=== PATIENT | female | born 1940 | race Caucasian/White ===

== ENCOUNTER 2017-01-13 01:15 | Inpatient (IN) | payer OTHER, MEDICARE ==
[~2017-01-13] VITALS: Ht 167.6 cm; Wt 70.3 kg
[~2017-01-13 01:15] MED LIST: LOPRESSOR50 M1 PO; LOSARTAN POTASS50 M1 PO; MELATONIN PO; WARFARIN; ZANTAC150 M1 PO
--- NOTE | 2017-01-13 10:40 | Admission Core Measures ---
Admission Meds I reviewed the following Meds: Current Medications Sig/Christin Start time Last Medication Dose Stop Time Status Admin Cefazolin Sodium 2,000 MG ONCE 01/13 0000 NR (Kefzol-Ancef Inj) 01/13 0469 Acute Coronary Syndrome Inclusion Criteria ACS Diagnosis No Inpatient Core Measures LDL Reminder: If No, please order W/I first 24hr of stay Congestive Heart Failure Inclusion Criteria CHF Diagnosis No Cerebrovascular accident Inclusion Criteria CVA/TIA Diagnosis No Inpatient Core Measures Bedside Swallow Eval Reminder: If BSE failed, place ST order Antithrombotic Reminder: Order Antithrombotic Medication by end of day 2 Antithrombotic Reminder: Document Reason Antithrombotic Not ordered by end of day 2 AFIB/Flutter Reminder: If Present, add to problem list AFIB/Flutter Reminder: Order Anticoag Medication for pts with AFIB/Flutter Atherosclerosis Reminder: If Present, add to problem list LDL Reminder: If No, please order W/I first 24hr of stay PT Order Reminder: If No, please order Venous thromboembolism Inpatient Core Measures VTE Risk Factors: [facility] prophylaxis d/t No contraindications No VTE Pharm Prophylaxis d/t No contraindications Inclusion Criteria - Per Current guidelines, there needs to be overlap - treatment for the first 5 days of Warfarin therapy. - Parenteral Anticoagulation (IV or SC) needs to be - given along with Warfarin therapy. VTE Diagnosis No (HX dvt) VTE Type NONE VTE Confirmed by (Test) NONE Problem List As ranked by this Provider includes Assessment & Plan 1. Primary osteoarthritis of left hip HOME MEDS Home Med List Losartan Potassium 50 MG TABLET 1 TAB PO DAILY HTN (Reported) [MELATONIN] 1 MG PO QHS SLEEP (Reported) Metoprolol Tartrate (Lopressor) 50 MG TABLET 1 TAB PO BID HTN (Reported) Ranitidine HCl (Zantac) 150 MG TABLET 1 TAB PO DAILY GERD (Reported)
[2017-01-13 13:04] LABS: PT 12.1 SEC (9.4-12.5)
--- NOTE | 2017-01-13 14:52 | Surg Short-stay <48hrs Dis Sum ---
Visit Information Visit Dates Admission Date: 01/13/17 Discharge Date: 01/14/17 Surgical Short Stay DC Summary Admission Diagnosis: Left hip primary osteoarthritis Final Diagnosis: Same Status post left total hip arthroplasty Procedure(s): Left total hip arthroplasty Summary/Significant Findings: Patient was admitted to the hospital for an elective total joint replacement. The procedure was tolerated well and patient was transferred to a general surgical floor. Diet was advanced and tolerated, and the patient voided spontaneously. The patient was evaluated and treated by physical therapy. At the time of hospital discharge, the vital signs were stable, neurovascular status was intact, and pain was controlled with the use of oral pain medications. While inpatient, anticoagulated with Coumadin per INR and Lovenox. Will continue on Coumadin per INR after discharge Condition at Discharge: Stable Discharge Disposition: home health services Discharge instructions provided to patient/family: Yes Post discharge follow-up plan: Follow up with Dr. Bazan in 6 weeks from date of surgery. Please call his office to arrange and/or confirm this appointment.
--- NOTE | 2017-01-13 15:00 | Patient Discharge Instructions ---
Discharge Instructions General Discharge Information You were seen/treated for: Left hip primary osteoarthritis You had these procedures: Left total hip arthroplasty Watch for these problems: Increasing pain despite the use of pain medication Increasing redness, warmth or swelling Drainage of any type from incision Inability to bear weight on operative leg Persistent nausea and vomiting Fever greater than 101.5 degrees Other wound care: Please keep wound clean and dry. No ointments or lotions of any type on or near incision at any time. No exceptions. Your dressing will be changed by your nurse on the second day after your surgery. Daily dry dressing changes are recommended each day thereafter. Do not soak your wound in a bath at any time until otherwise indicated by your surgeon. You may shower, please dry wound immediately after shower with a clean towel. Special Instructions: Coumadin: Continue to take based on INR. INR goal 2-3. Constipation: Pain medication can cause constipation. It is recommended that you take Colace and miralax daily. You may discontinue this medication if you develop loose stool or diarrhea. If you wish to continue this medication, it is available over the counter. If you are unable to move your bowels or pass gas after several days, please contact your doctor. Diet Continue normal diet: Yes Activity Activity Limited to: Weight bear as tolerated Additional ACTIVITY Info: Use assistive devices as needed Acute Coronary Syndrome Inclusion Criteria At DC or during hospital stay patient has or had the following: ACS DIAGNOSIS No Discharge Core Measures Meds if any: Prescribed or Continued at Discharge Meds if any: NOT Prescribed or Continued at Discharge Congestive Heart Failure Inclusion Criteria At DC or during hospital stay patient has or had the following: CHF DIAGNOSIS No Discharge Core Measures Meds if any: Prescribed or Continued at Discharge Meds if any: NOT Prescribed or Continued at Discharge Cerebrovascular accident Inclusion Criteria At DC or during hospital stay patient has or had the following: CVA/TIA Diagnosis No Discharge Core Measures Meds if any: Prescribed or Continued at Discharge Meds if any: NOT Prescribed or Continued at Discharge Venous thromboembolism Inclusion Criteria VTE Diagnosis No VTE Type NONE VTE Confirmed by (Test) NONE Discharge Core Measures - Per Current guidelines, there needs to be overlap - treatment for the first 5 days of Warfarin therapy. - If discharged on Warfarin prior to 5 days of - overlap therapy, the patient will need to be - assessed for post discharge needs including - *Post discharge parental anticoagulation - *Warfarin and/or parental anticoagulation education - *Follow up date to check INR post discharge At least 5 days overlap therapy as Inpatient No Meds if any: Prescribed or Continued at Discharge Note: Overlap Therapy is Warfarin and Anticoagulant Meds if any: NOT Prescribed or Continued at Discharge
[2017-01-13] MEDS ORDERED: COLACE100 M1 PO (15:03)
[2017-01-13] MEDS ORDERED: MIRALAX17 G1 PO (15:03)
[2017-01-13] MEDS ORDERED: MS CONTIN15 M2 PO (15:03)
[2017-01-13] MEDS ORDERED: COUMADIN5 M2 PO (15:03)
[2017-01-13] MEDS ORDERED: DILAUDID2 M1 PO (15:03)
--- NOTE | 2017-01-13 17:59 | Operative Report ---
Operative/Inv Procedure Report Surgery Date: 01/13/17 Name of Procedure: Left total hip replacement Pre-Operative Diagnosis: Primary left hip DJD Post-Operative Diagnosis: Same Estimated Blood Loss: 250 Surgeon/Heavy Equipment Supervisor: ISIDORO FERRARI,FRAN Huber Anesthesia: block Operative/Procedure Note Note: Description of Procedure: The patient was taken to the operating room and positively identified. After induction of spinal anesthesia and administration of appropriate pre-operative antibiotics, the patient was positioned supine on the operating room table and all bony prominences were well padded. After performing a surgical timeout, the left lower extremity was prepped and draped in the usual sterile fashion. A direct anterior approach was made to the left hip. The incision was carried sharply through superficial soft tissues to the level of the fascia. Meticulous hemostasis was maintained with Bovie electocautery. The fascia over the tensor fascia dwayne muscle was opened sharply and the interval between the TFL and the sartorius was entered bluntly taking care to stay lateral to the lateral femoral cutaneous nerve. Retractors were placed around the femoral neck and the pericapsular fat was identified. The ascending branches of the lateral femoral circumflex vessels were identified and carefully coagulated. The pericapsular fat and anterior capsule were then resected. A napkin ring osteotomy was performed and the femoral head was removed without difficulty. Attention was then turned to the acetabulum. After appropriate placement of retractors, the acetabulum was exposed. Soft tissue was cleaned from the acetabular margin and notch. Overhanging osteophytes were removed and the teardrop was exposed. The acetabulum was then sequentially reamed to accept a 56 mm [place] Trident Tritanium Hemispherical shell. This was impacted into place in the appropriate position and fitted with a 36 mm Trident X3 zero degree polyethylene insert. A single acetabular screw was used for supplemental fixation. Attention was then turned to the femur. After performing the appropriate ligament releases, the proximal femur was exposed. It was then sequentially broached to accept a size 6 Jackie Accolade 2 stem. This was trialed for leg length and stability. The trial component was removed and the final component was impacted into place. The trunnion was carefully cleaned and fit with a 36 mm, +2.5 Biolox delta ceramic femoral head. The hip was reduced and put through a full range of motion and found to be stable. The articular space was then irrigated with sterile saline. The periarticular soft tissues were infilitrated with Marcaine. The fascial layer was closed with interrupted #1 vicryl suture and the skin was re-approximated with interrupted 2 -0 vicryl. The skin was closed with a running 3-0 V-Lock suture. Steri-strips and a sterile dressing were applied. The patient was awakened and taken to the recovery room in satisfactory condition.
--- NOTE | 2017-01-13 18:47 | RADIOLOGY REPORT ---
EXAMINATION: XR HIP, LEFT CLINICAL INFORMATION: Hip replacement. Imaging in PACU COMPARISON: None TECHNIQUE: Two views of the left hip. FINDINGS: Status post left hip replacement. Orthopedic components in position. Surgical drain in the left hip soft tissues. There is air in the soft tissues from the surgery. IMPRESSION: Status post left hip replacement.
--- NOTE | 2017-01-13 21:31 | PN- Orthopedic ---
Subjective Subjective: POSTOP CHECK Feeling well. Some postoperative pain at incision. Tolerating diet. No out of bed. Denies chest pain, shortness of breath, nausea or vomiting. Denies paresthesias.. Objective Vital Signs and I&Os Vital Signs Date Time Temp Pulse Resp B/P B/P Pulse O2 O2 Flow FiO2 Mean Ox Delivery Rate 01/13 2121 99 Nasal 2.0L Cannula Physical Exam: GEN: NAD CARD: S1S2 RRR PULM: CTAB ABD: soft, nt, nd, +bs EXT: Left hip dressing CDI, tender at incision, palpable pedal pulses, calves soft nt, intact dorsi/plantar flexion bilaterally, gross sensation intact bilaterally Assessment/Plan Assessment/Plan A: 76f pod#0 sp L MANUEL, PMHx clotting d/o on home coumadin, with appropriate postop pain. P: - DVT ppx: couamdin 7mg tonight, continue per INR. Lovenox 30BID to start POD1. - regular diet as tolerated - prn pain meds - OOB, ambulate, WBAT, PT - abx x23h postop ppx - am labs - hemovac drain -home meds - will dw attending Core Measures/Miscellaneous Venous Thromboembolism VTE Risk Factors: Surgery VTE Contraindications: No Contraindications VTE Diagnosis: No (HX dvt) VTE Type: NONE VTE Confirmed by (Test): NONE Beta Ramana Is Beta Ramana a Home Med? Yes Antibiotics Is Patient on Antibiotics? Yes
[2017-01-13 21:54] VITALS: BP 160/72
[2017-01-14 00:04] VITALS: BP 134/68
[2017-01-14 02:04] VITALS: BP 122/60
[2017-01-14 06:00] VITALS: BP 128/60
[2017-01-14 09:15] LABS: PT 12.2 SEC (9.4-12.5)
[2017-01-14 09:26] LABS: ABSOLUTE BASOPHIL COUNT 0 /CUMM (0.0-0.2); ABSOLUTE EOSINOPHIL COUNT 0 /CUMM (0.0-0.7); ABSOLUTE GRANULOCYTE CT 10.2 /CUMM (1.4-6.5); ABSOLUTE MONOCYTE COUNT 0.9 /CUMM (0.10-0.60); BASOPHIL % 0 % (0.0-2.0); EOSINOPHIL % 0 % (0-5); GRANULOCYTE % 84.4 % (42.2-75.2); HEMATOCRIT 30.9 % (37-47); MEAN CORPUSCULAR HGB 28.5 PG (27.0-31.0); MEAN CORPUSCULAR HGB CONC 33.1 G/DL (33.0-37.0); MEAN CORPUSCULAR VOLUME 86.3 FL (81.0-99.0); MEAN PLATELET VOLUME 9.3 FL (7.4-10.4); PLATELET COUNT 165 /CUMM (130-400); RED BLOOD CELL CT 3.58 /CUMM (4.20-5.40); WHITE BLOOD CELL COUNT 12.1 /CUMM (4.8-10.8)
--- NOTE | 2017-01-14 10:17 | PN- Orthopedic ---
Subjective Subjective: Reports nausea and "feeling off", which she associates with the pain medication given earlier (dilaudid). Not yet out of bed with PT today. 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 She reports baseline pain and swelling in both of her lower legs. On coumadin at baseline for a history of clotting disorder. She denies dizziness. No shortness of breath. No chest pains. Objective Vital Signs and I&Os Vital Signs Date Time Temp Pulse Resp B/P B/P Pulse O2 O2 Flow FiO2 Mean Ox Delivery Rate 01/14 0600 97.9 83 19 128/60 98 Nasal Cannula 01/14 0204 98.4 78 18 122/60 97 Nasal Cannula 01/14 0004 97.8 80 18 134/68 98 Nasal Cannula 01/13 2154 98.2 81 18 160/72 100 01/13 2139 81 160/72 01/13 2121 99 Nasal 2.0L Cannula Intake & Output 01/14 1600 01/14 0800 01/14 0000 01/13 1600 01/13 0800 01/13 0000 Intake Total 1150 450 Output Total 680 40 Balance 470 410 Intake, IV 600 150 Intake, Oral 550 300 Output, 80 40 Drainage Output, Urine 600 Patient 155 lb Weight Weight Reported by Patient Measurement Method Physical Exam: General - alert & oriented x 3. comfortable. no acute distress. Lungs - clear bilaterally. no w/r/r. Cardiac - s1s2. reg. Abdomen - soft. nontender. Extremities - warm bilaterally. hemovac drain with bloody drainage (removed). left hip dressing stained after hemovac removed, but intact. no hematoma appreciated at this time. lower legs with "baseline" swelling per pt. palpable pulses distally. some calf tenderness bilaterally. nvi. Current Medications: Current Medications Sig/Christin Start time Last Medication Dose Route Stop Time Status Admin Acetaminophen 1,000 MG Q6H 01/14 1015 AC N/A 1 UNIT IV 01/15 0429 Acetaminophen 0 .STK-MED ONE 01/13 1516 DC PO Cefazolin Sodium 2 GM Q8H 01/13 2100 DC 01/14 N/A 1 UNIT IV 01/14 0529 0622 Cefazolin Sodium 2,000 MG ONCE 01/13 0000 DC IV 01/13 2359 Dextrose/Sodium 1,000 ML .[id number] 01/13 2015 DC 01/14 Chloride IV 0915 Docusate Sodium 100 MG BID 01/13 2200 AC 01/14 PO 0915 Enoxaparin Sodium 30 MG BID 01/14 1000 AC 01/14 SC 0915 Famotidine 20 MG BID 01/13 2200 DC PO Famotidine 20 MG BID 01/13 2200 AC 01/14 PO 0915 Fentanyl Citrate 100 MCG .STK-MED ONE 01/13 1513 DC IM 01/13 1514 Hydromorphone HCl 2 MG Q4P PRN 01/13 2015 DC 01/14 PO 0417 Hydromorphone HCl 4 MG Q4P PRN 01/13 2015 DC PO Ketorolac 15 MG Q6 01/15 1200 AC Tromethamine IV Ketorolac 15 MG Q8P PRN 01/13 2015 DC 01/14 Tromethamine IV 01/16 2001 0651 Losartan Potassium 50 MG DAILY 01/14 1000 DC PO Losartan Potassium 50 MG DAILY 01/14 1000 AC 01/14 PO 0915 Metoprolol Tartrate 50 MG BID 01/13 2200 DC PO Metoprolol Tartrate 50 MG BID 01/13 2200 AC 01/14 PO 0914 Midazolam HCl 2 MG .STK-MED ONE 01/13 1514 DC IM 01/13 1515 Morphine Sulfate 2 MG Q2P PRN 01/13 2015 DC IV Ondansetron HCl 4 MG Q6P PRN 01/13 2015 AC 01/14 IV 0417 Oxycodone HCl 0 .STK-MED ONE 01/13 1516 DC PO Polyethylene Glycol 17 GM DAILY 01/14 1000 AC 01/14 PO 0915 Promethazine HCl 12.5 MG Q6P PRN 01/13 2015 AC 01/14 IV 01/20 1514 0801 Tramadol HCl 50 MG Q4-6 PRN PRN 01/14 1015 AC PO Tramadol HCl 100 MG Q6 PRN 01/14 1015 AC PO Warfarin Sodium 7 MG COUMADIN 1700 01/14 2000 DC 01/13 PO 01/13 Results Last 48 Hours of Labs: Laboratory Tests 01/14 01/13 0645 1228 Chemistry Sodium (137 - 145 mmol/L) 133 L Potassium (3.5 - 5.1 mmol/L) 4.1 Chloride (98 - 107 mmol/L) 100 Carbon Dioxide (22 - 30 mmol/L) 24 Anion Gap (5 - 16) 9 BUN (7 - 17 mg/dL) 15 Creatinine (0.5 - 1.0 mg/dL) 0.7 Estimated GFR (>60 ml/min) > 60 BUN/Creatinine Ratio (7 - 25 %) 21.4 Coagulation PT (9.4 - 12.5 SEC) 12.2 12.1 INR (0.90 - 1.19) 1.16 1.15 Hematology CBC w Diff Pending WBC Pending RBC Pending Hgb Pending Hct Pending MCV Pending MCH Pending RDW Pending Plt Count Pending MPV Pending PUBS MCHC Pending Assessment/Plan Assessment/Plan This 76 year old white female with hx htn, gerd, clotting disorder on coumadin at baseline with hx multiple dvts, now POD#1 s/p left total hip replacement some nausea. not drinking well this morning. continue iv fluids until tolerating clears. venous ultrasounds of both legs to r/o dvt lovenox 30 bid / coumadin daily, bridge for baseline a/c for clotting disorder f/u labs continue PT if ultrasound studies negative hemovac drain removed d/c dilaudid. make toradol / tylenol around the clock. try tramadol prn pain control. dressing change tomorrow will d/w Core Measures/Miscellaneous Venous Thromboembolism VTE Risk Factors: Surgery VTE Contraindications: No Contraindications VTE Diagnosis: No (HX dvt) VTE Type: NONE VTE Confirmed by (Test): NONE Beta Ramana Is Beta Ramana a Home Med? Yes Antibiotics Is Patient on Antibiotics? Yes
--- NOTE | 2017-01-14 10:30 | NUR ---
Physical Therapy: Consult received and chart reviewed. Ultrasound doppler pending to r/o DVT. Will hold PT eval until results are negative. Thank you.
[2017-01-14 10:49] VITALS: BP 112/60
--- NOTE | 2017-01-14 12:16 | ULTRASOUND REPORT ---
EXAMINATION: US TRIPLEX OF LOWER EXTREMITIES, BILATERAL CLINICAL INFORMATION: Postop left total hip replacement. History of clotting disorder. COMPARISON: None. TECHNIQUE: Color-flow triplex imaging with spectral analysis and compression Doppler were performed on the bilateral lower extremities. FINDINGS: Respiratory variation, normal compression and augmented flow are noted throughout the bilateral lower extremities. The visualized common femoral vein, superficial femoral vein, profunda femoral vein, popliteal vein and midcalf peroneal and posterior tibial venous segments show no evidence of deep venous thrombosis. There are no focal fluid collections. IMPRESSION: 1. Normal triplex scan without evidence of deep venous thrombosis involving the bilateral lower extremities. 2. There are no focal fluid collections.
[2017-01-14 13:51] VITALS: BP 100/60
[2017-01-14 21:59] VITALS: BP 100/60
--- NOTE | 2017-01-15 04:32 | NUR ---
At approximately 0330 this RN enterd pt room and noted that pt's dressing to left hip was saturated with blood and dripping outside of the dressing. Surgical PA Ej Kilgore was notified. Per PA dressing was reinforced with new gauze and tegaderm at leaking areas. We will continue to monitor dressing.
[2017-01-15 06:00] VITALS: BP 128/60
[2017-01-15 08:28] LABS: PT 18.7 SEC (9.4-12.5)
--- NOTE | 2017-01-15 09:25 | PN- Orthopedic ---
See Addendum Subjective Subjective: Feels ready to go home today, awaiting to do stairs with PT. Pain well controlled with nonnarcotic medications. He offers no other complaints and denies CP/SOB/N/V Objective Vital Signs and I&Os Vital Signs Date Time Temp Pulse Resp B/P B/P Pulse O2 O2 Flow FiO2 Mean Ox Delivery Rate 01/15 0915 76 130/80 01/15 0915 76 130/80 01/15 0600 97.9 68 18 128/60 97 Room Air 01/14 2159 97.9 66 20 100/60 96 01/14 2141 72 120/60 01/14 1431 Room Air 01/14 1351 97.7 63 18 100/60 98 Room Air 01/14 1049 97.7 68 20 112/60 98 Room Air Intake & Output 01/15 1600 01/15 0800 01/15 0000 01/14 1600 01/14 0800 01/14 0000 Intake Total 510 853 4953 1150 450 Output Total 650 400 680 40 Balance -803 237 7517 470 410 Intake, IV 150 325 525 600 150 Intake, Oral 240 240 700 550 300 Output, 80 40 Drainage Output, Urine 650 400 600 Patient 155 lb Weight Weight Reported by Patient Measurement Method Physical Exam: GEN: NAD CARD: S1S2 RRR PULM: CTAB ABD: soft, nt EXT: Left hip dressing bloodstained, dressing changed, serosanguineous drainage from Hemovac site, Steri-Strips bloodstained, clean dry dressing reapplied. No erythema at incision. Tender to palpation overlying incision. Positive plantar and dorsiflexion bilaterally. Sensation grossly intact. Palpable pedal pulses. Calves soft nt, ALPS on bl Assessment/Plan Assessment/Plan A: 76 F POD #2 status post left MANUEL, stable P: - Coumadin and Lovenox for DVT prophylaxis and history of clotting disorder -Regular diet - prn pain meds, nonnarcotic preferred by patient - OOB, ambulate, WBAT, PT - DC planning pending PT eval - will dw attending Core Measures/Miscellaneous Venous Thromboembolism VTE Risk Factors: Surgery VTE Contraindications: No Contraindications VTE Diagnosis: No (HX dvt) VTE Type: NONE VTE Confirmed by (Test): NONE Beta Ramana Is Beta Ramana a Home Med? Yes Antibiotics Is Patient on Antibiotics? Yes
[2017-01-15] MEDS ORDERED: ULTRAM50 M1 PO (10:26)
--- NOTE | 2017-01-15 12:08 | NUR ---
SHIFT NOTE: PT A/V/OX3. ON RA. DOING WELL POST L HIP REPLACEMENT. DENIES ANY PAIN. +CMS, +PULSES. LCTA. SKIN INTACT. DRESSING WITH BLOODY DRAINAGE, CHANGED X3 THIS SHIFT, SURGICAL PA AWARE. NO BM SINCE 01/12. PT C/O HAVING POOR PO INTAKE. ENCOURAGED TO DRINK FLUIDS AND EAT TO PROMOTE BOWEL FUNCTION. COLACE AND MIRALAX GIVEN. AWAITING DISCHARGE. PT IS EAGER TO GET HOME. AX1 OOB WITH RW, CLEARED BY PT. WILL MONITOR.
[2017-01-15 14:22] VITALS: BP 117/80
--- NOTE | 2017-01-15 14:27 | NUR ---
CLIVE MILAN PLACED ON PT AND DISCHARGE PAPERWORK WENT OVER. MEDICATED WITH TRAMADOL TO SEE IF PT TOLERATES. WILL MONITOR.
--- NOTE | 2017-01-15 14:51 | NUR ---
ANSWERED AND CLARIFIED ALL QUESTIONS FOR PT AND . PT IS TO NOT GO HOME ON LOVENOX. PT IS GOING ON COUMADIN. INR TODAY 1.79. NO PAIN. DISCHARGE WHEELCHAIR CALLED FOR.
== END 2017-01-15 15:00 | disposition home health service (06) | DRG 470 ==
LOC: SDA 01:15 → ENRESERV 18:46 → ENTRNSPT 19:44 → 2NA 19:57 → CMPTRNSPT 20:06 → ENPENDDIS 01-15 13:44 → 2NA 01-15 15:00
PROVIDERS: Physician Assistant Surgical; ADMIT Orthopaedic Surgery
PROC: 0SRB04A Replacement of Left Hip Joint with Ceramic on Polyethylene Synthetic Substitute, Uncemented, Open Approach (ICD-10-PCS; principal; 2017-01-13)
DX: M16.12 Unilateral primary osteoarthritis, left hip (principal); D68.51 Activated protein C resistance; M25.752 Osteophyte, left hip; Z86.718 Personal history of other venous thrombosis and embolism; Z79.01 Long term (current) use of anticoagulants; I10 Essential (primary) hypertension; K21.9 Gastro-esophageal reflux disease without esophagitis; G25.0 Essential tremor
CPT/HCPCS: 2NAP; 36415; 73502-LT; 82436; 87086; 88304; 93970; 97110-GO; 97116-GO; 97161-GP; 97530-GO; J0131; J0690; J0735; J1650; J2405; J2550; J7042